=== PATIENT | male | born 1985 | race Caucasian/White ===

== ENCOUNTER 2017-06-26 07:58 | Emergency (ER) | payer OTHER ==
[2017-06-26 08:03] VITALS: TEMP 98.4
[2017-06-26] MEDS ORDERED: NS 1,000 ML IV ONE ×2 (08:48)
--- NOTE | 2017-06-26 08:48 | EDPHY ---
H & P Time Seen by Provider: 06/26/17 08:33 HPI/ROS: Chief complaint. Abdominal pain HPI. 31-year-old male presents to emergency department with right-sided abdominal pain for 1 week. It worsens and then not as bad. When it is bad he has vomiting. He notes better with hot shower. Pain is right mid abdomen and sharp. Minimal right back pain. It is not worse with movement and in fact can' t really find a comfortable position. He has noted his urine is dark but otherwise no urinary symptoms. Penis and testicles are okay. No fever. Some diarrhea earlier in the week. No similar symptoms previously. He has been increasing exercise and work out and drinking sodas and not much water. ROS Constitutional. no fever/chills, no weakness Eyes. no problems with vision ENT. no sore throat, no nasal drainage Cardiovascular. no chest pain Respiratory. no shortness of breath, no cough Abdominal. Right mid abdominal pain with nausea vomiting . No problems urinating but dark urine MS. no calf pain/swelling, no neck/back pain, no joint pain Skin. no rash Lymph. no swollen glands Neuro. no headache, no dizziness, no difficulty walking or with speech Past Medical/Surgical History: Healthy Social History: Single, nonsmoker, no alcohol Smoking Status: Never smoked Physical Exam: General Appearance: Alert well-developed male moderate distress vital signs are stable Eyes: Pupils equal and round no pallor or injection. ENT, Mouth: Mucous membranes are moist. Respiratory: There are no retractions, lungs are clear to auscultation. Cardiovascular: Regular rate and rhythm. Gastrointestinal: Abdomen is soft and nontender, no masses, bowel sounds normal. Patient shows me discomfort in the right mid abdomen but it is not tender to deep palpation Neurological: Awake and alert, sensory and motor exams grossly normal. Skin: Warm and dry, no rashes. Musculoskeletal: Neck is supple nontender. Extremities symmetrical, full range of motion. Psychiatric: Patient is oriented X 3, there is no agitation. Constitutional: Initial Vital Signs Temperature (C) 36.9 C 06/26/17 08:01 Heart Rate 83 06/26/17 08:01 Respiratory Rate 17 06/26/17 08:01 Blood Pressure 142/99 H 06/26/17 08:01 O2 Sat (%) 94 06/26/17 08:01 O2 Delivery Mode Room Air Allergies/Adverse Reactions: No Known Allergies Allergy (Unverified 06/26/17 08:01) Home Medications: Medication Instructions Recorded Ondansetron Odt [Zofran Odt] 4 mg PO Q4PRN PRN #4 tab 06/26/17 oxyCODONE/APAP 5/325 [Percocet 1 tab PO Q4-6PRN PRN #7 tab 06/26/17 5/325] Medical Decision Making - Diagnostics Imaging Results: Imaging Impressions Abdomen/Pelvis CT 06/26/17 08:48 Impression: Normal CT abdomen and pelvis without IV contrast. No evidence for nephrolithiasis or hydronephrosis. No CT findings for appendicitis. Information relayed to Dr. Miguel Cisse on 26 June 2017 at 0940 hours. Attention: This CT examination is specifically designed to evaluate patients who are clinically suspected of having acute obstructive uropathy. This examination does not use radiographic contrast, and as such, provides only a limited evaluation of the abdomen, pelvis and retroperitoneum. If there is further clinical suspicion for pathological conditions other than obstructive uropathy, a complete CT evaluation of the abdomen and pelvis utilizing intravenous, oral, and rectal contrast should be considered. CT abdomen without IV contrast shows a normal appendix and no evidence for kidney stone Procedures: Urine dip shows trace blood ED Course/Re-evaluation: IV normal saline Re-evaluation at 10:30 a.m. patient continues to have pain and it is somewhat worse again. Treated with morphine and Zofran. Patient continued to have discomfort. I consulted and asked Dr. Nino, surgery to see the patient. He has evaluated the patient does not feel he has appendicitis. The patient and Dr. Nino and I are comfortable with treating the patient as an outpatient with re-evaluation in 1 day for continuing symptoms Differential Diagnosis: Certainly appears the patient had a kidney stone. He has right flank pain that waxes and wanes any can't get comfortable and he has blood in his urine. However CT shows no evidence of kidney stone. I considered appendicitis but we have good view of the appendix. This could be gastroenteritis. It is possible this represents cyclic vomiting syndrome with frequent ingestion of cannabis. - Data Points Laboratory Results: Laboratory Results 06/26/17 08:22 06/26/17 08:22 06/26/17 06/26/17 06/26/17 08:22 08:22 08:15 WBC 15.51 10^3/uL H 10^3/uL (3.80-9.50) RBC 4.93 10^6/uL 10^6/uL (4.40-6.38) Hgb 15.6 g/dL g/dL (13.7-17.5) Hct 43.6 % % (40.0-51.0) MCV 88.4 fL fL (81.5-99.8) MCH 31.6 pg pg (27.9-34.1) MCHC 35.8 g/dL g/dL (32.4-36.7) RDW 12.4 % % (11.5-15.2) Plt Count 339 10^3/uL 10^3/uL (150-400) MPV 9.5 fL fL (8.7-11.7) Neut % (Auto) 86.4 % H % (39.3-74.2) Lymph % (Auto) 6.5 % L % (15.0-45.0) [place] % (Auto) 6.2 % % (4.5-13.0) Eos % (Auto) 0.1 % L % (0.6-7.6) Baso % (Auto) 0.3 % % (0.3-1.7) Nucleat RBC Rel Count 0.0 % % (0.0-0.2) Absolute Neuts (auto) 13.40 10^3/uL H 10^3/uL (1.70-6.50) Absolute Lymphs (auto) 1.01 10^3/uL 10^3/uL (1.00-3.00) Absolute Monos (auto) 0.96 10^3/uL H 10^3/uL (0.30-0.80) Absolute Eos (auto) 0.02 10^3/uL L 10^3/uL (0.03-0.40) Absolute Basos (auto) 0.05 10^3/uL 10^3/uL (0.02-0.10) Absolute Nucleated RBC 0.00 10^3/uL 10^3/uL (0-0.01) Immature Gran % 0.5 % % (0.0-1.1) Immature Gran # 0.07 10^3/uL 10^3/uL (0.00-0.10) Sodium 146 mEq/L H mEq/L (135-145) Potassium 3.8 mEq/L mEq/L (3.5-5.2) Chloride 106 mEq/L mEq/L (97-110) Carbon Dioxide 23 mEq/l mEq/l (22-31) Anion Gap 17 mEq/L H mEq/L (8-16) BUN 13 mg/dL mg/dL (7-23) Creatinine 0.8 mg/dL mg/dL (0.7-1.3) Estimated GFR > 60 Glucose 109 mg/dL H mg/dL (70-100) Calcium 10.6 mg/dL H mg/dL (8.5-10.4) Urine Color YELLOW Urine Appearance CLEAR Urine pH 5.0 (5.0-7.5) Ur Specific [place] 1.030 (1.002-1.030) Urine Protein 1+ H (NEGATIVE) Urine Ketones 2+ H (NEGATIVE) Urine Blood 1+ H (NEGATIVE) Urine Nitrate NEGATIVE (NEGATIVE) Urine Bilirubin NEGATIVE (NEGATIVE) Urine Urobilinogen 4.0 EU H EU (0.2-1.0) Ur Leukocyte Esterase NEGATIVE (NEGATIVE) Urine RBC 15-25 /hpf H /hpf (0-3) Urine WBC 1-3 /hpf /hpf (0-3) Ur Epithelial Cells NONE SEEN /lpf /lpf (NONE-1+) Urine Mucus 1+ /lpf /lpf (NONE-1+) Urine Glucose NEGATIVE (NEGATIVE) Medications Given: Discontinued Medications Sodium Chloride (Ns) 1,000 mls @ 0 mls/hr IV EDNOW ONE; Wide Open PRN Reason: Protocol Stop: 06/26/17 08:49 Last Admin: 06/26/17 08:54 Dose: 1,000 mls Sodium Chloride (Ns) 1,000 mls @ 0 mls/hr IV EDNOW ONE; Wide Open PRN Reason: Protocol Stop: 06/26/17 08:49 Last Admin: 06/26/17 08:55 Dose: 1,000 mls Morphine Sulfate (Morphine) 6 mg IVP EDNOW ONE Stop: 06/26/17 10:29 Last Admin: 06/26/17 10:33 Dose: 6 mg Ondansetron HCl (Zofran) 4 mg IVP EDNOW ONE Stop: 06/26/17 10:29 Last Admin: 06/26/17 10:31 Dose: 4 mg Departure - Departure Disposition: Home, Routine, Self-Care Clinical Impression: Abdominal pain Qualifiers: Abdominal location: right lower quadrant Qualified Code(s): R10.31 - Right lower quadrant pain Condition: Good Instructions: Abdominal Pain (ED) Additional Instructions: Easy activity today. Drink plenty of fluids and stay hydrated. Percocet if needed for discomfort. Ibuprofen 600 mg every 6 hr for discomfort. Zofran if needed for nausea. Return for worsening symptoms. Recheck in 1 day if not improved Referrals: NONE *PRIMARY CARE P,. [Primary Care Provider] - As per Instructions Prescriptions: Ondansetron Odt [Zofran Odt] 4 mg PO Q4PRN PRN #4 tab PRN Reason: Nausea/Vomiting, Use 1st oxyCODONE/APAP 5/325 [Percocet 5/325] 1 tab PO Q4-6PRN PRN #7 tab PRN Reason: Pain, Moderate
[2017-06-26 08:54] LABS: PLATELET COUNT 339 10^3/uL (150-400)
[2017-06-26 10:18] VITALS: RESP 16
[2017-06-26] MEDS ORDERED: ONDANSETRON 4 MG/2 ML VIAL IVP ONE (10:28)
[2017-06-26 12:52] VITALS: BP 138/85; PULSE 81; O2SAT 98
--- NOTE | 2017-06-26 12:59 | GCON ---
[f rep st] CONSULTATION DATE OF CONSULTATION: 06/26/2017 CHIEF COMPLAINT: Abdominal pain with nausea and vomiting. HISTORY OF PRESENT ILLNESS: This is an otherwise healthy 31-year-old male, who presents to the emerg ency department with colicky right upper quadrant pain for the last [id number] to 2 weeks. The patient states that he initially noticed the pain while lying down approximately 2 weeks ago, and sta eugene that it is first noted as what he called back pain, and that usually resolved within an hour or s o. He states that over the last 2 weeks, he has had multiple episodes, the last of which was last ni ght and persisted, which prompted his presentation here. In addition to the pain, he endorses nausea with vomiting, and he did vomit once while here. Prior to coming to the emergency department, he st ates that he did have a little bit of problems urinating and states that he did notice something floa ting in the toilet bowl but was unclear what it was. In addition to the above symptoms, he denies snow ving any fevers or chills. He did state that his pain was 9/10 on presentation; he describes it as r ight upper quadrant in nature with radiation to the back and down his leg. He denied having any issu es while urinating earlier today. Prior to 2 weeks ago, he has never had pain like this before. PAST MEDICAL HISTORY: None. PAST SURGICAL HISTORY: None. CURRENT MEDICATIONS: None. FAMILY HISTORY: Noncontributory. SOCIAL HISTORY: Single. Smokes marijuana daily. Does not use alcohol. Denies illicit drug use. 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 REVIEW OF SYSTEMS: A full 10-point review was performed and, unless explicitly stated above, is othe rwise negative. PHYSICAL EXAMINATION: VITAL SIGNS: Temperature 36.9, blood pressure 130/92, heart rate is 58, and h e is 95% on room air. CONSTITUTIONAL: He is in no apparent distress. He appears comfortable. HEEN T: Eyes: His pupils are equal, round, and reactive to light and accommodation. He has anicteric sc lerae. Ears, nose, mouth and throat: He has moist mucous membranes. His hearing is normal. His ea rs appear normal. CARDIOVASCULAR: He has a regular rate and rhythm without murmurs. RESPIRATORY: No respiratory distress. No rales or rhonchi. He is otherwise clear to auscultation. GI: He has n ormoactive bowel sounds. He is soft, nondistended, nontender. No rebound tenderness. Negative Murp hy sign. SKIN: Warm, normal color. Multiple tattoos on his upper extremities. No rashes or abrasi ons. MUSCULOSKELETAL: Full strength, no weakness or tenderness. NEUROLOGIC: Alert and oriented x3 . Cranial nerves 2-12 intact. No weakness, no numbness. PSYCH: He is interacting appropriately. He is not anxious. LYMPH/HEME/IMMUNOLOGIC: No cervical, groin or supraclavicular lymphadenopathy ap preciated. MEDICAL DECISION MAKING: Labs: Leukocytosis to 15,000, H and H stable at 15 and 44. Chemistry, wit h the exception of an elevated glucose at 109 and an elevated calcium at 10.6, is unremarkable. His urine is significant for 15-25 red cells with 1+ blood. Imaging performed included a CT scan of the abdomen and pelvis without IV contrast which shows no nep hro- or urolithiasis. It also visualizes the appendix well without any appendiceal wall thickening, stranding or any secondary signs of appendicitis. These images were personally reviewed by myself. ASSESSMENT/PLAN: A 31-year-old male with 2-week history of abdominal pain. Question renal colic abeba alesha appendicitis. After evaluating the patient, he does not have a classical history for appendiciti s as he has had this pain on and off for 2 weeks. I discussed with him the usual findings and usual history of appendicitis, and that it usually starts fairly suddenly and progresses. I also discussed his CT scan findings with him and that he has a normal appearing appendix without any secondary sign s of appendicitis. Given these findings, as well as reassuring physical examination, I told the mari ent that he more than likely does not have appendicitis, although it could progress to be so. I gave him worrisome characteristics to re-present to the emergency department for further for evaluation, but anticipate that he will continue to do well. We did discuss hydration as he drinks a significant amount of soda on a daily basis and he understands that he will cut back on this and increase his wa ter intake. I told him that if he should have recurrent pain in the right lower quadrant, fevers, ch ills, that he should re-present for further workup. He verbally understood this. The plan will be to p.o. challenge and likely send the patient home. /[id number]/MODL
== END 2017-06-26 12:50 | disposition home or self-care (01) ==
DX: R10.31 Right lower quadrant pain (principal); E86.9 Volume depletion, unspecified
CPT/HCPCS: 96374; J2405

== ENCOUNTER 2017-06-27 07:16 | Inpatient (IN) | payer OTHER ==
--- NOTE | 2017-06-27 07:26 | EDPHY ---
H & P Stated Complaint: RLQ pain, nausea not improved -here 06/26 for same Time Seen by Provider: 06/27/17 07:25 - Personal History Current Tetanus/Diphtheria Vaccine: Unsure Current Tetanus Diphtheria and Acellular Pertussis (TDAP): Unsure - Medical/Surgical History Hx Asthma: No Hx Chronic Respiratory Disease: No Hx Diabetes: No Hx Cardiac Disease: No Hx Renal Disease: No Hx Cirrhosis: No Hx Alcoholism: No Hx HIV/AIDS: No Hx Splenectomy or Spleen Trauma: No Other PMH: denies - Social History Smoking Status: Never smoked Constitutional: Initial Vital Signs Temperature (C) 36.9 C 06/27/17 07:20 Heart Rate 78 06/27/17 07:20 Respiratory Rate 16 06/27/17 07:20 Blood Pressure 151/94 H 06/27/17 07:20 O2 Sat (%) 92 06/27/17 07:20 O2 Delivery Mode Nasal Cannula O2 (L/minute) 2 Allergies/Adverse Reactions: No Known Allergies Allergy (Verified 06/27/17 07:26) Home Medications: Medication Instructions Recorded Ondansetron Odt [Zofran Odt] 4 mg PO Q4PRN PRN #4 tab 06/26/17 oxyCODONE/APAP 5/325 [Percocet 1 tab PO Q4-6PRN PRN #7 tab 06/26/17 5/325] Acetaminophen [Tylenol 325mg (*)] 325 mg PO Q8HRS PRN 06/27/17 Ibuprofen [Motrin (*)] 200 mg PO DAILY PRN 06/27/17 Medical Decision Making - Diagnostics Imaging Results: Imaging Impressions Abdomen Ultrasound 06/27/17 07:32 Impression: Cholelithiasis with no definite sonographic findings to support a clinical diagnosis of acute cholecystitis. Results called and discussed with Db Ramirez MD on 06/27/2017 at 8:40 Imaging: Discussed imaging studies w/ bending roll hand Radiologist ED Course/Re-evaluation: CHIEF COMPLAINT: Abdominal pain HISTORY OF PRESENT ILLNESS: The patient is a 31 y/o male who returns for the 2nd time in 24 hours for worsening right-sided abdominal pain. He reports intermittent abdominal pain for 3 weeks. He initially noticed lower abdomen/ groin pain with mild radiation to his back, but this has since localized more to his RLQ and RUQ. In the last few days he developed nausea, vomiting, and orange-colored diarrhea. He denies urinary symptoms, fever, cough, testicle or penis pain, recent illness or trauma. During evaluation here yesterday for these symptoms by ED physician and surgeon, his abdomen/pelvis CT was normal and showed no signs of appendicitis. Today his pain feels more severe so he returned for reevaluation. He is unable to find a comfortable position and denies alleviating or aggravating factors. He does smoke marijuana daily. REVIEW OF SYSTEMS: A 10 point review of systems was performed and is negative with the exception of the elements mentioned in the history of present illness. PHYSICAL EXAM: HR, BP, O2 Sat, RR. Temp noted General Appearance: Alert, well hydrated, appropriate, and non-toxic appearing. Head: Atraumatic without scalp tenderness or obvious injury Eyes: Pupils equal, round, reactive to light and accommodation, EOMI, no trauma , no injection. Nose: Atraumatic, no rhinorrhea, clear. Throat: Mucus membranes moist. Neck: Supple Respiratory: No retractions, no distress, no wheezes, and no accessory muscle use. Lungs are clear to auscultation bilaterally. Cardiovascular: Regular rate and rhythm, no murmurs, rubs, or gallops. Good capillary refill all extremities. Gastrointestinal: Abdomen is soft, positive Card's sign, non-distended, no masses, no rebound, no guarding, no peritoneal signs. Musculoskeletal: Normal active ROM of all extremities, atraumatic. Neurological: Alert, appropriate, and interactive. The patient has non-focal cranial nerves, motor, sensory, and cerebellar exam. Skin: No rashes, good turgor, no nodules on palpation. Past medical history: Denies Past surgical history: Denies Family history: Noncontributory Social history: Single. Smokes marijuana daily. No alcohol use. Works for marijuana dispensary. Prior medical records reviewed including ED visit, CT imaging, and surgeon note from 06/26/16 for the same symptoms. DIAGNOSTICS/PROCEDURES/CRITICAL CARE TIME: RUQ US: Cholelithiasis MRCP: 3mm stone in common bile duct. DIFFERENTIAL DIAGNOSIS: The differential diagnosis for the patient's abdominal pain included but was not limited to appendicitis, cholecystitis, hernias, testicular torsion, gastritis, and urinary tract infection. MEDICAL DECISION MAKING: This is a 31 y/o male who returns with a 3-week history of worsening RUQ pain. Abdominal CT yesterday was normal. He has a positive Card's sign on exam today , but otherwise is well-appearing. Afebrile here. Plan for IV, labs, and abdominal US. 1mg IV Dilaudid, 4mg IV Zofran, 30mg IV Toradol, and 2L IV NS administered. Abdominal US shows multiple gallstones. His LFTs, bilirubin, and alkaline phosphatase are elevated. WBC elevated. UA pending. Suspect recent passage of stone through common duct due to these elevated enzymes. Patient will require admission and surgery consult for cholelithiasis and cholecystitis. Consulted with Dr. Velez, surgeon. He will assess patient in the ED and recommends GI consult for ERCP. Spoke with hospitalist service. Dr. Moses accepts admission. Reassessed patient and discussed results. He is more comfortable after medication. He agrees with plan for admission. 0940: Consulted with Dr. Robles, GI. He recommends MRCP and will consult during admission. - Data Points Laboratory Results: Laboratory Results 06/27/17 07:36 06/27/17 07:36 06/27/17 06/27/17 06/27/17 08:50 07:36 07:36 WBC 10.04 10^3/uL H 10^3/uL (3.80-9.50) RBC 4.73 10^6/uL 10^6/uL (4.40-6.38) Hgb 14.9 g/dL g/dL (13.7-17.5) Hct 42.4 % % (40.0-51.0) MCV 89.6 fL fL (81.5-99.8) MCH 31.5 pg pg (27.9-34.1) MCHC 35.1 g/dL g/dL (32.4-36.7) RDW 12.6 % % (11.5-15.2) Plt Count 332 10^3/uL 10^3/uL (150-400) MPV 9.6 fL fL (8.7-11.7) Neut % (Auto) 82.9 % H % (39.3-74.2) Lymph % (Auto) 9.9 % L % (15.0-45.0) [place] % (Auto) 6.5 % % (4.5-13.0) Eos % (Auto) 0.1 % L % (0.6-7.6) Baso % (Auto) 0.2 % L % (0.3-1.7) Nucleat RBC Rel Count 0.0 % % (0.0-0.2) Absolute Neuts (auto) 8.33 10^3/uL H 10^3/uL (1.70-6.50) Absolute Lymphs (auto) 0.99 10^3/uL L 10^3/uL (1.00-3.00) Absolute Monos (auto) 0.65 10^3/uL 10^3/uL (0.30-0.80) Absolute Eos (auto) 0.01 10^3/uL L 10^3/uL (0.03-0.40) Absolute Basos (auto) 0.02 10^3/uL 10^3/uL (0.02-0.10) Absolute Nucleated RBC 0.00 10^3/uL 10^3/uL (0-0.01) Immature Gran % 0.4 % % (0.0-1.1) Immature Gran # 0.04 10^3/uL 10^3/uL (0.00-0.10) PT INR Sodium 144 mEq/L mEq/L (135-145) Potassium 3.9 mEq/L mEq/L (3.5-5.2) Chloride 101 mEq/L mEq/L (97-110) Carbon Dioxide 26 mEq/l mEq/l (22-31) Anion Gap 17 mEq/L H mEq/L (8-16) BUN 12 mg/dL mg/dL (7-23) Creatinine 0.9 mg/dL mg/dL (0.7-1.3) Estimated GFR > 60 Glucose 113 mg/dL H mg/dL (70-100) Calcium 10.1 mg/dL mg/dL (8.5-10.4) Total Bilirubin 6.9 mg/dL H mg/dL (0.1-1.4) Conjugated Bilirubin 5.0 mg/dL H mg/dL (0.0-0.5) Unconjugated Bilirubin 1.9 mg/dL H mg/dL (0.0-1.1) AST 220 IU/L H IU/L (17-59) ALT 420 IU/L H IU/L (21-72) Alkaline Phosphatase 164 IU/L H IU/L (38-126) Total Protein 8.1 g/dL g/dL (6.3-8.2) Albumin 4.5 g/dL g/dL (3.5-5.0) Lipase 87 IU/L IU/L (23-300) Urine Color MISSY Urine Appearance CLEAR Urine pH 5.0 (5.0-7.5) Ur Specific [place] 1.029 (1.002-1.030) Urine Protein 1+ H (NEGATIVE) Urine Ketones 1+ H (NEGATIVE) Urine Blood NEGATIVE (NEGATIVE) Urine Nitrate NEGATIVE (NEGATIVE) Urine Bilirubin POSITIVE H (NEGATIVE) Urine Urobilinogen 4.0 EU H EU (0.2-1.0) Ur Leukocyte Esterase NEGATIVE (NEGATIVE) Urine RBC 1-3 /hpf /hpf (0-3) Urine WBC 5-10 /hpf H /hpf (0-3) Ur Epithelial Cells NONE SEEN /lpf /lpf (NONE-1+) Urine Mucus 2+ /lpf H /lpf (NONE-1+) Urine Glucose NEGATIVE (NEGATIVE) 06/27/17 07:30 WBC RBC Hgb Hct MCV MCH MCHC RDW Plt Count MPV Neut % (Auto) Lymph % (Auto) [place] % (Auto) Eos % (Auto) Baso % (Auto) Nucleat RBC Rel Count Absolute Neuts (auto) Absolute Lymphs (auto) Absolute Monos (auto) Absolute Eos (auto) Absolute Basos (auto) Absolute Nucleated RBC Immature Gran % Immature Gran # PT 14.1 SEC SEC (12.0-15.0) INR 1.07 (0.83-1.16) Sodium Potassium Chloride Carbon Dioxide Anion Gap BUN Creatinine Estimated GFR Glucose Calcium Total Bilirubin Conjugated Bilirubin Unconjugated Bilirubin AST ALT Alkaline Phosphatase Total Protein Albumin Lipase Urine Color Urine Appearance Urine pH Ur Specific [place] Urine Protein Urine Ketones Urine Blood Urine Nitrate Urine Bilirubin Urine Urobilinogen Ur Leukocyte Esterase Urine RBC Urine WBC Ur Epithelial Cells Urine Mucus Urine Glucose Medications Given: Ondansetron HCl (Zofran) 4 mg IVP Q4HRS PRN PRN Reason: Nausea/Vomiting, Can't Take PO Stop: 12/24/17 10:36 Last Admin: 06/27/17 11:26 Dose: 4 mg Discontinued Medications Ertapenem (Invanz) 1 gm IVP EDNOW ONE PRN Reason: Protocol Stop: 06/27/17 10:29 Last Admin: 06/27/17 10:42 Dose: 1 gm Hydromorphone HCl (Dilaudid) 1 mg IVP EDNOW ONE Stop: 06/27/17 07:32 Last Admin: 06/27/17 07:52 Dose: 1 mg Sodium Chloride (Ns) 1,000 mls @ 0 mls/hr IV EDNOW ONE; Wide Open PRN Reason: Protocol Stop: 06/27/17 07:32 Last Admin: 06/27/17 07:50 Dose: 1,000 mls Sodium Chloride (Ns) 1,000 mls @ 0 mls/hr IV EDNOW ONE; Wide Open PRN Reason: Protocol Stop: 06/27/17 07:32 Last Admin: 06/27/17 07:51 Dose: 1,000 mls Ketorolac Tromethamine (Toradol) 30 mg IVP EDNOW ONE Stop: 06/27/17 07:32 Last Admin: 06/27/17 07:52 Dose: 30 mg Ondansetron HCl (Zofran) 4 mg IVP EDNOW ONE Stop: 06/27/17 07:32 Last Admin: 06/27/17 07:52 Dose: 4 mg Departure - Departure Disposition: [facility] Acute Clinical Impression: Cholecystitis, Choledocholithiasis Cholelithiases Qualifiers: Cholelithiasis location: gallbladder Cholecystitis presence: with cholecystitis Cholecystitis acuity: acute Biliary obstruction: without biliary obstruction Qualified Code(s): K80.00 - Calculus of gallbladder with acute cholecystitis without obstruction Condition: Fair Report Scribed for: Db Ramirez Report Scribed by: Gail Vides Date of Report: 06/27/17 Time of Report: 08:11
[2017-06-27] MEDS ORDERED: NS 1,000 ML IV ONE ×2 (07:31)
[2017-06-27] MEDS ORDERED: HYDROmorphONE/DILAUDID 1 MG/ML INJ IVP ONE (07:31)
[2017-06-27] MEDS ORDERED: ONDANSETRON 4 MG/2 ML VIAL IVP ONE (07:31)
[2017-06-27] MEDS ORDERED: KETOROLAC 30 MG/1 ML SDV IVP ONE (07:31)
[2017-06-27 08:18] LABS: PLATELET COUNT 332 10^3/uL (150-400)
[2017-06-27] MEDS ORDERED: ERTAPENEM 1 GM VIAL IVP ONE (10:28)
[2017-06-27] MEDS ORDERED: PROMETHAZINE HCL 25 MG/ML INJ IVP PRN (10:37)
[2017-06-27] MEDS ORDERED: ONDANSETRON 4 MG/2 ML VIAL IVP PRN ×2 (10:37→17:18)
[2017-06-27] MEDS ORDERED: ACETAMINOPHEN 325 MG TAB PO PRN (10:37)
[2017-06-27] MEDS ORDERED: ONDANSETRON DISINTEGRATING 4 MG TAB PO PRN (10:37)
[2017-06-27 11:06] LABS: INR 1.07 (0.83-1.16); PROTIME(PATIENT) 14.1 SEC (12.0-15.0)
--- NOTE | 2017-06-27 11:08 | GHP ---
[f rep st] HISTORY AND PHYSICAL DATE OF ADMISSION: 06/27/2017 HISTORY OF PRESENT ILLNESS: Mr. Kapoor is a 31-year-old gentleman with minimal past medical histo ry, who has had 2 ER visits in the last two days for abdominal pain. He was seen yesterday where he had an abdominal pelvis CT done without contrast showing no evidence of kidney stone. It was a noncon trast CT. He was also noted to have blood in urine which in retrospect was probably biliary. At [facility] t time, the gallbladder and pancreas were described as unremarkable. Returns today with worsening abdominal pain. He has had some subjective fevers and chills. He has h ad no cough, no shortness of breath. He does give a history of biliary colic in the past. REVIEW OF SYSTEMS: Complete 10-point review of systems conducted and negative except as noted in the HPI. PAST MEDICAL HISTORY: None. ALLERGIES: None. HOME MEDICATIONS: None. 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 Does not drink alcohol. Has smoked in the past briefly but is not a smoker at this point in [facility]. FAMILY HISTORY: Reviewed and unremarkable. PHYSICAL EXAMINATION: VITAL SIGNS: Temperature 36.7, blood pressure 151/94, pulse 60, breathing 14 times a minute, 95% on room air. GENERAL: No acute distress. HEENT: Sclerae are icteric. Oropharyn x clear. Mucous membranes are moist. NECK: Supple without lymphadenopathy or JVD. LUNGS: Clear t o auscultation bilaterally. HEART: S1, S2. ABDOMEN: Soft, nontender, nondistended. There is some right upper quadrant tenderness sunshine Card sign. LOWER EXTREMITIES: Without edema. C sr nontender. SKIN: Without rash. NEUROLOGIC: Exam is nonfocal. LABORATORY STUDIES: His UA shows 5 to 10 white cells, otherwise, unremarkable. His urine is positiv e for bilirubin. Notably, it was negative yesterday. Sodium 144, potassium 3.9, chloride 101, bicarbo brandi 26, BUN 12, creatinine 0.9, glucose 113. Bilirubin is 6.9, mostly conjugated. AST is 228, ALT is 420, alkaline phosphatase 164. Lipase is normal. White count is 10. Hematocrit is 42, platelets are 332,000. Imaging. STUDIES: Abdominal ultrasound shows cholelithiasis with a borderline dilated common bile duct of 7.6 mm with no intrahepatic ductal dilation. The CT yesterday has a normal gallbladder and I reviewed i t and interpreted those images myself. I discussed the case with Dr. Ramirez. ASSESSMENT AND PLAN: 31-year-old gentleman with biliary obstruction and probable choledocholithiasis . 1. Biliary obstruction. The patient has elevated LFTs and lipase and right upper quadrant pain, and dark urine with evidence of bilirubin and this is suggestive of biliary obstruction. An MRCP has be en ordered. I agree with this. He has been started on ertapenem. I will transition him to Unasyn for tomorrow and GI consultation has been obtained. 2. Hyperglycemia. This is mild and a nonfasting sample. I do acknowledge this patient's obesity. We will follow. 3. Hypertension. The patient is at risk given his obesity for hypertension. We recommend outpatient followup. 4. Elevated liver function tests, consistent with biliary obstruction. As mentioned above. DISPOSITION: 1. Inpatient status. 2. Prophylaxis, SCDs. /[id number]/MODL
[2017-06-27] MEDS ORDERED: GLUCAGON HCL 1 MG VIAL ONE (15:12)
[2017-06-27] MEDS ORDERED: IOTHALAMATE MEG (CONRAY) 50 ML VIAL IV ONE (15:14)
[2017-06-27] MEDS ORDERED: LR 1,000 ML IV ONE (15:22)
--- NOTE | 2017-06-27 16:13 | PDANEPAE ---
ANE History of Present Illness ERCP ANE Past Medical History - Cardiovascular History Hx Hypertension: No Hx Arrhythmias: No Hx Chest Pain: No Hx Coronary Artery / Peripheral Vascular Disease: No Hx CHF / Valvular Disease: No Hx Palpitations: No - Pulmonary History Hx COPD: No Hx Asthma/Reactive Airway Disease: No Hx Recent Upper Respiratory Infection: No Hx Oxygen in Use at Home: No Hx Sleep Apnea: No Sleep Apnea Screening Result - Last Documented: Positive - Endocrine History Hx Diabetes: No - Chronic Pain History Chronic Pain: No ANE Review of Systems Review of Systems: - Exercise capacity METS (RN): 4 METS ANE Patient History - Allergies Allergies/Adverse Reactions: No Known Allergies Allergy (Verified 06/27/17 07:26) - Home Medications Home Medications: Acetaminophen [Tylenol 325mg (*)] 325 mg PO Q8HRS PRN 06/27/17 [Last Taken Unknown] Ibuprofen [Motrin (*)] 200 mg PO DAILY PRN 06/27/17 [Last Taken Unknown] - NPO status NPO Since - Liquids (Date): 06/27/17 NPO Since - Liquids (Time): 06:00 NPO Since - Solids (Date): 06/26/17 NPO Since - Solids (Time): 22:00 - Smoking Hx Marijuana use: Yes - Family Anes Hx Family Anes Hx: none ANE Labs/Vital Signs - Labs Result Diagrams: 06/27/17 07:36 06/27/17 07:36 - Vital Signs Blood Pressure: 159/99 Heart Rate: 63 Respiratory Rate: 15 O2 Sat (%): 92 Height: 177.8 cm Weight: 124.8 kg ANE Physical Exam - Airway Neck exam: FROM Mallampati Score: Class 1 Mouth exam: normal dental/mouth exam, poor dentition - Pulmonary Pulmonary: no respiratory distress - Cardiovascular Cardiovascular: regular rate and rhythym, no murmur, rub, or gallop - ASA Status ASA Status: II ANE Anesthesia Plan Anesthesia Plan: general endotracheal anesthesia
[2017-06-27] MEDS ORDERED: MIDAZOLAM 2 MG/2 ML VIAL ONE (16:18)
[2017-06-27] MEDS ORDERED: PROPOFOL/EMULSION 500 MG/50 ML BOTTLE IV ONE (16:18)
[2017-06-27] MEDS ORDERED: fentaNYL 100 MCG/2 ML INJ ONE ×2 (16:18)
[2017-06-27] MEDS ORDERED: INDOMETHACIN 50 MG SUPP PR ONE ×3 (16:41→16:50)
[2017-06-27] MEDS ORDERED: PROPOFOL 200 MG/20 ML VIAL ONE (16:41)
[2017-06-27] MEDS ORDERED: GLYCOPYRROLATE 0.2 MG/1 ML VIAL ONE (16:47)
[2017-06-27] MEDS ORDERED: SUCCINYLCHOLINE CHLORIDE 200 MG/10 ML SYR IVP ONE (16:47)
[2017-06-27] MEDS ORDERED: ONDANSETRON 4 MG/2 ML VIAL ONE (16:48)
[2017-06-27] MEDS ORDERED: ROCURONIUM 50 MG/5 ML VIAL ONE (16:48)
[2017-06-27] MEDS ORDERED: DEXAMETHASONE 4 MG/ML VIAL ONE (16:48)
[2017-06-27] MEDS ORDERED: SUGAMMADEX SODIUM 200 MG/2 ML VIAL IVP ONE (17:02)
--- NOTE | 2017-06-27 17:10 | GIREPORT ---
[facility] Surgical Services - Endoscopy Department Patient Name: Lalito Kapoor Procedure Date: 06/27/2017 3:26 PM Patient Type: Inpatient Attending MD/ ER Physician: Van Robles MD Procedure: ERCP Indications: Bile duct stone(s) Patient Profile: 31 year old male presents for evaluation of choledocholithiasis. Providers: Van Robles MD Medicines: General Anesthesia, Indomethacin 100 mg [place] Complications: No immediate complications. Estimated blood loss: Minimal. Description of Procedure: After obtaining informed consent, the scope was passed under direct vis ion. Throughout the procedure, the patient's blood pressure, pulse, and oxyg en saturations were monitored continuously. The Duodenalscope was introduc ed through the mouth, and advanced to the duodenum and used to inject cont rast into the bile duct. The ERCP was accomplished without difficulty. The patient tolerated the procedure well. Findings: The chief contract officer film was normal. The esophagus was successfully intubated und er direct vision. The scope was advanced to a normal major papilla in the descending duodenum without detailed examination of the pharynx, larynx and associated structures, and upper GI tract. The upper GI tract was gross ly normal. The bile duct was deeply cannulated with the short-nosed tracti on sphincterotome. Contrast was injected. I personally interpreted the kaitlin e duct images. Ductal flow of contrast was adequate. Image quality was suboptimal due to body habitus. Contrast extended to the bifurcation. T he CBD dilated to 9mm. The middle third of the main bile duct contained tw o stones, the largest of which was 10 mm in diameter. A 12 mm biliary sphincterotomy was made with a traction (standard) sphincterotome using pure cut current. The sphincterotomy oozed blood. The biliary tree was swept with a 15 mm balloon starting at the bifurcation. All stones were removed. T here was significant pus following from the duct consistent with cholangitis . Estimated Blood Loss: Estimated blood loss was minimal. Post Op Diagnosis: - Choledocholithiasis was found. Complete removal was accomplished by biliary sphincterotomy and balloon extraction. - A biliary sphincterotomy was performed. - The biliary tree was swept. - CHOLANGITIS. Recommendation: - Return patient to hospital [facility] for ongoing care. - NPO. - Antibiotics x 10 days. - Thank you for allowing me to participate in the care of your patient. Attending Participation: I personally performed the entire procedure. Van Robles MD Van Robles MD 06/27/2017 5:09:47 PM This report has been signed electronicallyVan Robles MD Number of Addenda: 0 Note Initiated On: 06/27/2017 3:26 PM [email or web address]
[2017-06-27] MEDS ORDERED: LABETALOL HCL 5 MG/ML 20 ML MDV ONE (17:17)
[2017-06-27] MEDS ORDERED: LR 500 ML IV PRN (17:18)
[2017-06-27] MEDS ORDERED: fentaNYL 100 MCG/2 ML INJ IVP PRN (17:18)
[2017-06-27] MEDS ORDERED: LABETALOL HCL 5 MG/ML 20 ML MDV IVP PRN (17:18)
[2017-06-27] MEDS ORDERED: NALOXONE HCL 0.4 MG/ML INJ IVP PRN (17:18)
--- NOTE | 2017-06-27 17:20 | POSTANESTH ---
Post Anesthetic Evaluation Cardiovascular Status: Similar to Pre-Op Cond Respiratory Status: Normal, Stable Level of Consciousness/Mental Status: Can Participate in Eval Pain Control: Adequate, Prn Tx Ordered Nausea/Vomiting Control: Adequate, Prn Tx Ordered Complications Possibly Related to Anesthesia: None Noted
--- NOTE | 2017-06-27 18:11 | SOAPPROG ---
SOAP Progress Note Assessment/Plan: Assessment: Plan: 06/28/17 04:31 GI note See dictated consult note and procedure note for details. + cholangitis with pus flowing from CBD. S/p ERCP with CBD clearance. Recommend NPO. Needs antibiotics x 10 days. Objective: Vital Signs Temp Pulse Resp BP Pulse Ox 37.4 C 59 L 16 129/90 H 96 06/27/17 17:40 06/27/17 18:09 06/27/17 18:09 06/27/17 18:09 06/27/17 18:09 06/26/17 06/27/17 06/28/17 05:59 05:59 05:59 Intake Total 2500 Output Total 60 Balance 2440 PT 14.1 SEC (12.0-15.0) 06/27/17 07:30 INR 1.07 (0.83-1.16) 06/27/17 07:30 ICD10 Worksheet Patient Problems: Problems Problem Status Onset Cholelithiases Acute Cholecystitis Acute Choledocholithiasis Acute
--- NOTE | 2017-06-27 18:28 | PDMN ---
Medical Necessity Medical necessity: Pt meets INPT criteria per and [facility] [place] M-555 Gallbladder or Bile Duct Inflammation or Stone (choledocholithiasis found with complete removal of stones accomplished by ERCP, significant pus present consistent with cholangitis; elevated LFTs and lipase; requiring IVABx).
[2017-06-28] MEDS: AMPICILLIN/SULBACTAM 3 GM in NS 100 ML IV SCH ×3 (05:08→17:50)
[2017-06-28] MEDS: NS 1,000 ML IV SCH ×3 (05:08→23:00)
[2017-06-28 05:12] LABS: PLATELET COUNT 271 10^3/uL (150-400)
--- NOTE | 2017-06-28 08:46 | GCON ---
[f rep st] CONSULTATION DATE OF CONSULTATION: 06/27/2017 CONSULTING PHYSICIAN: Jose Moses MD REASON FOR CONSULTATION: Abdominal pain/Abnormal imaging CHIEF COMPLAINT: RUQ abdominal pain. HISTORY OF PRESENT ILLNESS: The patient is a 31-year-old male with no significant past medical problems, who presents to [facility] with complaints of abdominal pain. The patient has been experiencing abdominal pain for the last 4-5 days. He complains of a sharp pain right upper quadrant/ right lower quadrant which sometimes radiates to the back. His pain has become progressively worse and may be exacerbated by oral intake. He denies any alleviating factors. He also complains of nausea, as well as episodes of vomiting. On blood work, he was noted to have an elevated WBC of 10.04. He was also noted to have an alkaline phosphatase of 164, with an elevated AST of 220 and ALT of 420. I am being asked by Dr. Moses to evaluate the patient in regard to abdominal pain. PAST MEDICAL HISTORY: None. PAST SURGICAL HISTORY: None. MEDICATIONS: None. ALLERGIES: None. FAMILY HISTORY: No history of colon cancer. SOCIAL HISTORY: Positive marijuana. Drinks alcohol about once a month. No significant tobacco use. REVIEW OF SYSTEMS: A 14-point comprehensive review of systems was asked. Pertinent positives and negatives per HPI. PHYSICAL EXAM: VITAL SIGNS: Blood pressure 147/99, pulse 68, respirations 18, temp 36.8. GENERAL: Awake, alert, oriented x3. No distress. Obese, HEENT: Anicteric sclerae. Moist mucosa. NECK: No JVD. CARDIOVASCULAR: Regular rate and rhythm. Positive S1, S2. No murmurs or gallops appreciated. LUNGS: Clear to auscultation bilaterally. No wheezes, rales, rhonchi. ABDOMEN: Soft , nontender, nondistended. Positive bowel sounds. No guarding. No rebound. EXTREMITIES: No clubbing, cyanosis, or edema. NEUROLOGIC: 2-12 grossly intact. PSYCH: Normal affect. SKIN: No rash. + tattoos. MUSCULOSKELETAL: No obvious joint effusions. LABORATORY DATA: Blood work 06/27/2017: AST 220, ALT 420, alkaline phosphatase 164. MRC positive 3 mm stone. ASSESSMENT AND PLAN: 1. Abdominal pain right upper quadrant/right lower quadrant radiating to the back. Elevated LFTs. Etiology? Suspect choledocholithiasis. At this time, I recommend to proceed ERCP. The risks, benefits, alternatives of the procedure were discussed in great detail with the patient. The risk of infection, bleeding, perforation, sedation, and pancreatitis were discussed. Due to his morbid obesity, he has increased risk of sedation. Will consult Anesthesiology for support. Thank you very much for this consultation. /[id number]/MODL MTDD
[2017-06-28] MEDS: HYDROmorphONE/DILAUDID 1 MG/ML INJ IVP PRN (09:23)
--- NOTE | 2017-06-28 11:17 | SOAPPROG ---
SOAP Progress Note Assessment/Plan: Assessment: CBD stones with cholangitis on antibiotics doing better post ERCP LFT better Plan: Rec IV antibiotics for now Rec cholecystectomy before discharge once cholangitis better 10 days of antibiotics Will sign off for now 06/28/17 11:14 Subjective: CC abd pain Some pain last night but better today. No melena or n/v Objective: Vital Signs Temp Pulse Resp BP Pulse Ox 37.1 C 64 19 140/87 H 92 06/28/17 08:47 06/28/17 08:47 06/28/17 08:47 06/28/17 08:47 06/28/17 08:47 Laboratory Results 06/28/17 04:59 06/28/17 04:59 06/27/17 06/28/17 06/29/17 05:59 05:59 05:59 Intake Total 2500 Output Total 60 Balance 2440 PT 14.1 SEC (12.0-15.0) 06/27/17 07:30 INR 1.07 (0.83-1.16) 06/27/17 07:30 Physical Exam - Physical Exam General Appearance: alert, no apparent distress Respiratory: lungs clear Cardiac/Chest: regular rate, rhythm Abdomen: normal bowel sounds (mild tenderness no rebound) ICD10 Worksheet Patient Problems: Problems Problem Status Onset Cholecystitis Acute Choledocholithiasis Acute Cholelithiases Acute
--- NOTE | 2017-06-28 13:04 | HOSPPROG ---
Hospitalist Progress Note Assessment/Plan: 31-year-old admitted with abdominal pain, he underwent imaging and ERCP which revealed acute cholangitis secondary to gallstones # common bile duct stones with cholangitis, currently on Unasyn he is doing better post ERCP * Will consult surgery * Continue antibiotics * LFTs improving Subjective: Patient new to me and chart reviewed. Has 2 weeks of a mole comfort and 4 days of severe pain. He underwent ERCP and is feeling better today although still has some mild abdominal tenderness Objective: Vital Signs Temp Pulse Resp BP Pulse Ox 37.0 C 53 L 18 133/74 H 92 06/28/17 12:11 06/28/17 12:11 06/28/17 12:11 06/28/17 12:11 06/28/17 12:11 Laboratory Results 06/28/17 04:59 06/28/17 04:59 06/27/17 06/28/17 06/29/17 05:59 05:59 05:59 Intake Total 2500 Output Total 60 Balance 2440 PT 14.1 SEC (12.0-15.0) 06/27/17 07:30 INR 1.07 (0.83-1.16) 06/27/17 07:30 - Physical Exam Constitutional: obese, uncomfortable Eyes: PERRL, anicteric sclera, EOMI Ears, Nose, Mouth, Throat: moist mucous membranes, hearing normal Cardiovascular: regular rate and rhythym, no murmur, rub, or gallop Respiratory: no respiratory distress, no rales or rhonchi, clear to auscultation Gastrointestinal: tenderness (Mild), distension (Mild) Genitourinary: no bladder fullness Skin: warm Musculoskeletal: full muscle strength Neurologic: AAOx3 Psychiatric: interacting appropriately ICD10 Worksheet Patient Problems: Problems Problem Status Onset Cholelithiases Acute Cholecystitis Acute Choledocholithiasis Acute
[2017-06-29 05:24] LABS: PLATELET COUNT 270 10^3/uL (150-400)
[2017-06-29] MEDS: AMPICILLIN/SULBACTAM 3 GM in NS 100 ML IV SCH ×4 (05:24→17:57)
[2017-06-29] MEDS ORDERED: BUPIVACAINE 0.5% 30 ML SDV ONE (07:18)
[2017-06-29] MEDS ORDERED: MIDAZOLAM 2 MG/2 ML VIAL ONE (07:52)
[2017-06-29] MEDS ORDERED: MIDAZOLAM 2 MG/2 ML VIAL IVP ONE (07:53)
[2017-06-29] MEDS ORDERED: ONDANSETRON 4 MG/2 ML VIAL IVP PRN (07:54)
[2017-06-29] MEDS ORDERED: NALOXONE HCL 0.4 MG/ML INJ IVP PRN ×2 (07:54→09:50)
[2017-06-29] MEDS ORDERED: DEXAMETHASONE 4 MG/ML VIAL IVP PRN (07:54)
[2017-06-29] MEDS ORDERED: ALBUTEROL 3 ML DEYVIAL IH PRN (07:54)
--- NOTE | 2017-06-29 07:54 | PDANEPAE ---
ANE History of Present Illness here for lap kalli ETRESA Past Medical History - Cardiovascular History Hx Hypertension: No Hx Arrhythmias: No Hx Chest Pain: No Hx Coronary Artery / Peripheral Vascular Disease: No Hx CHF / Valvular Disease: No Hx Palpitations: No - Pulmonary History Hx COPD: No Hx Asthma/Reactive Airway Disease: No Hx Recent Upper Respiratory Infection: No Hx Oxygen in Use at Home: No Hx Sleep Apnea: No Sleep Apnea Screening Result - Last Documented: Positive - Endocrine History Hx Diabetes: No - Chronic Pain History Chronic Pain: No ANE Review of Systems Review of systems is: negative Review of Systems: - Exercise capacity Exercise capacity: >=4 METS METS (RN): 4 METS ANE Patient History - Allergies Allergies/Adverse Reactions: No Known Allergies Allergy (Verified 06/27/17 07:26) - Home Medications Home medications: home medication list seen and reviewed Home Medications: Acetaminophen [Tylenol 325mg (*)] 325 mg PO Q8HRS PRN 06/27/17 [Last Taken Unknown] Ibuprofen [Motrin (*)] 200 mg PO DAILY PRN 06/27/17 [Last Taken Unknown] - NPO status NPO Status: no food or drink >8 hours NPO Since - Liquids (Date): 06/28/17 NPO Since - Liquids (Time): 00:00 NPO Since - Solids (Date): 06/28/17 NPO Since - Solids (Time): 21:00 - Anes Hx Anes Hx: no prior problems - Smoking Hx Smoking Status: Never smoked TERESA Labs/Vital Signs - Labs Result Diagrams: 06/29/17 05:12 06/29/17 05:12 - Vital Signs Vital Signs: reviewed preoperatively; see RN documention for details Blood Pressure: 174/102 Heart Rate: 51 Respiratory Rate: 16 O2 Sat (%): 96 Height: 177.8 cm Weight: 124.8 kg ANE Physical Exam - Airway Neck exam: FROM Mallampati Score: Class 1 Mouth exam: onofre - Pulmonary Pulmonary: no respiratory distress - Cardiovascular Cardiovascular: regular rate and rhythym - ASA Status ASA Status: II ANE Anesthesia Plan Anesthesia Plan: general endotracheal anesthesia
[2017-06-29] MEDS ORDERED: PROPOFOL/EMULSION 500 MG/50 ML BOTTLE IV ONE (07:58)
[2017-06-29] MEDS ORDERED: fentaNYL 100 MCG/2 ML INJ ONE ×3 (08:12→09:46)
--- NOTE | 2017-06-29 08:20 | GCON ---
[f rep st] CONSULTATION DATE OF CONSULTATION: 06/29/2017 REFERRING PHYSICIAN: Laura Laboy MD REASON FOR CONSULTATION: Choledocholithiasis with cholangitis. HISTORY OF PRESENT ILLNESS: The patient is a 31-year-old man who had presented to the ER with abdomi nal pain. He was ultimately found to have cholangitis and choledocholithiasis. ERCP was performed, stent placed, and biliary sphincterotomy. His LFTs have been trending down. His white count is now normal. PAST MEDICAL HISTORY: None. PAST SURGICAL HISTORY: None. HOME MEDICATIONS: None. ALLERGIES: None. 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 He does not drink alc ohol. FAMILY HISTORY: Noncontributory. REVIEW OF SYSTEMS: Ten-point review of systems negative. PHYSICAL EXAMINATION: VITAL SIGNS: 36.6, 60, 113/81, 16, 95% room air. GENERAL: Pleasant, obese, BMI 39.5, well-groomed man lying on gurney. HEENT: Normocephalic. No gross hearing deficits. Muco us membranes moist. No scleral icterus. Pupils equal and round. LUNGS: Clear to auscultation bila terally. No increased work of breathing. CARDIAC: Regular rate. No peripheral edema. ABDOMEN: B owel sounds present. Soft. Minimal discomfort in the right upper quadrant. No abdominal incisions noted. MUSCULOSKELETAL: Normal nails. SKIN: Multiple tattoos. PSYCH: Mood and affect normal. RUKHSANA RO: Grossly intact. RESULTS REVIEWED: I personally reviewed the results of his laboratory work and his ERCP. Although h is LFTs are still elevated, today they are trending down nicely post ERCP. IMPRESSION/PLAN: The patient is a 31-year-old with cholangitis and choledocholithiasis. I will take him to the operating room for laparoscopic cholecystectomy. The risks and benefits, including, but not limited to, infection, bleeding, bile leak, need for additional procedures, were discussed. He h ad his questions answered to his satisfaction, signed the informed consent. He is on scheduled [place] n. /[id number]/MODL
[2017-06-29] MEDS ORDERED: KETOROLAC 30 MG/1 ML SDV ONE (09:44)
[2017-06-29] MEDS ORDERED: KETOROLAC 30 MG/1 ML SDV IVP ONE (09:45)
--- NOTE | 2017-06-29 09:45 | POSTOPPROG ---
Post Op Note Date of Operation: 06/29/17 Surgeon: Ina West Anesthesiologist: MICHAEL Anesthesia: GET(General Endotracheal) Pre-op Diagnosis: choledocolithiasis cholangitis Post-op Diagnosis: same Indication: 31 yo with cholangitis and choledocolithiasis Procedure: lap kalli Findings: multiple stones, dilated cystic duct with stones impacted Inf/Abcess present in the surg proc area at time of surgery?: Yes Depth: Deep Incisional (Fascial) Specimen(s): gallbladder
[2017-06-29] MEDS: fentaNYL 100 MCG/2 ML INJ IVP PRN ×3 (09:47→10:24)
[2017-06-29] MEDS ORDERED: HYDROCODONE/APAP 5/325 TAB PO PRN (09:47)
[2017-06-29] MEDS ORDERED: DIAZEPAM 10 MG/2 ML SYR IVP PRN (09:50)
[2017-06-29] MEDS ORDERED: MEPERIDINE 25 MG/ML SYR IVP PRN (09:50)
[2017-06-29] MEDS ORDERED: HYDROmorphONE/DILAUDID 1 MG/ML INJ IVP PRN (09:50)
[2017-06-29] MEDS ORDERED: HYDROmorphONE/DILAUDID 1 MG/ML INJ ONE (09:51)
--- NOTE | 2017-06-29 09:51 | POSTANESTH ---
Post Anesthetic Evaluation Cardiovascular Status: Normal, Stable Respiratory Status: Normal, Stable Level of Consciousness/Mental Status: Can Participate in Eval Pain Control: Inadeq, Add Tx Required Nausea/Vomiting Control: Adequate, Prn Tx Ordered Complications Possibly Related to Anesthesia: None Noted
--- NOTE | 2017-06-29 10:11 | GOP ---
[f rep st] OPERATIVE REPORT DATE OF OPERATION: 06/29/2017 SURGEON: Ina West MD ANESTHESIA: Dr. Ba Miranda/general. PREOPERATIVE DIAGNOSIS: 1. Choledocholithiasis. 2. Cholangitis. POSTOPERATIVE DIAGNOSIS: 1. Choledocholithiasis. 2. Cholangitis. PROCEDURE PERFORMED: Laparoscopic cholecystectomy. FINDINGS: Stones impacted in the cystic duct, which was enlarged. The gallbladder was also intrahep atic. SPECIMENS: Gallbladder. ESTIMATED BLOOD LOSS: 25 mL. INDICATIONS: The patient is a 31-year-old who was admitted for choledocholithiasis and cholangitis. He has had an ERCP with stent and sphincterotomy. Presents for cholecystectomy. DESCRIPTION OF PROCEDURE: The patient was brought into the operating room, placed supine on the tabl e, and general anesthesia was administered. His abdomen was prepped and draped in the usual sterile fashion. I infiltrated all sites with 0.5% Marcaine prior to making incisions. I made an incision at his umbilicus. I elevated it. I inserted the Veress needle. It took several attempts to make the Veress needle pass the hang-drop test. He was then connected to CO2 insufflatio n. The abdomen insufflated to a pressure of 15 mmHg. I placed a 5 mm trocar with a camera at this s ite. The trocar was hubbed. There were no injuries from Veress needle placement. Under direct visi on, I placed a 10 mm subxiphoid trocar and two 5 mm trocars in the right upper quadrant. I lifted th e gallbladder cephalad and laterally to expose the triangle of Calot. There was a lot of fat in this area. I had to perform tedious dissection in order to skeletonize the cystic duct. The cystic duct was enlarged. I also identified the cystic artery, which was singly clipped toward the gallbladder, doubly clipped distally, and transected with scissors. I attempted to clip the cystic duct, but the clip did not go all the way around it. I then transected the cystic duct with scissors and then kristofer myriam an Endoloop. There was some stone spillage, as they were impacted in the cystic duct. I lifted the gallbladder and continued to remove it from the gallbladder fossa. It was intrahepatic. I place d the gallbladder in the EndoCatch bag and retrieved it via the subxiphoid trocar. This had to be en larged slightly to accommodate the multiple stones. I then used a stone catheter to retrieve the add itional stones that were spilled. I performed suction irrigation. Hemostasis was achieved on the liver bed with electrocautery. The c lips and the Endoloop were in satisfactory position. Esther was placed on the liver bed. I used a f ascial closure device to close the fascia at the 10 mm trocar site using a [id number]. The port s removed under direct vision. The abdomen allowed to desufflate. Skin closed with 4-0 Monocryl. D ermabond applied. He was awakened in the operating room, extubated, transferred to PACU in stable co ndition. /[id number]/MODL
[2017-06-29] MEDS: KETOROLAC 15 MG/1 ML SDV IVP SCH ×2 (12:14→17:55)
--- NOTE | 2017-06-29 12:47 | ASMTCMCOM ---
CM Note CM Note Notes: Patient is s/p lap kalli with Dr West today. He is recovering well. He lives independently with his sister and is employed. Mother is local and supportive. I anticipate that patient will discharge home with no needs; if any arise, Case Management will assist. Date Signed: 06/29/2017 12:46 PM Electronically Signed By:Paula Sigala RN
--- NOTE | 2017-06-29 14:00 | HOSPPROG ---
Hospitalist Progress Note Assessment/Plan: 31-year-old admitted with abdominal pain, he underwent imaging and ERCP which revealed acute cholangitis secondary to gallstones. # common bile duct stones with cholangitis, s/p cholecystectomy today. Discussed with Dr. West, given extent of biliary stones and sick gall bladder she recommends additional midnight stay for IV abx and to slowly advance diet * monitor overnight * continue unasyn * if stable, can likely dc in am with 8-9 days of augmentin (minna complete 10 days post kalli) Subjective: comfortable, no new complaints Objective: Vital Signs Temp Pulse Resp BP Pulse Ox 36.9 C 49 L 17 130/81 H 96 06/29/17 13:44 06/29/17 13:44 06/29/17 13:44 06/29/17 13:44 06/29/17 13:44 Laboratory Results 06/29/17 05:12 06/29/17 05:12 06/28/17 06/29/17 06/30/17 05:59 05:59 05:59 Intake Total 2500 3555 910 Output Total 60 Balance 2440 3555 910 PT 14.1 SEC (12.0-15.0) 06/27/17 07:30 INR 1.07 (0.83-1.16) 06/27/17 07:30 - Physical Exam Constitutional: obese, uncomfortable Cardiovascular: regular rate and rhythym Respiratory: no respiratory distress, clear to auscultation Gastrointestinal: tenderness (mild) ICD10 Worksheet Patient Problems: Problems Problem Status Onset Cholelithiases Acute Cholecystitis Acute Choledocholithiasis Acute
[2017-06-29] MEDS: HYDROmorphONE/DILAUDID 1 MG/ML INJ IVP PRN (15:13)
[2017-06-29] MEDS: NS 1,000 ML IV SCH (19:10)
[2017-06-30] MEDS: KETOROLAC 15 MG/1 ML SDV IVP SCH ×2 (00:51→05:27)
[2017-06-30] MEDS: AMPICILLIN/SULBACTAM 3 GM in NS 100 ML IV SCH ×2 (00:51→05:28)
[2017-06-30] MEDS: NS 1,000 ML IV SCH (04:32)
[2017-06-30 07:54] VITALS: BP 124/79; PULSE 63; RESP 18; TEMP 98.5; O2SAT 96
--- NOTE | 2017-06-30 10:01 | GDS ---
[f rep st] DISCHARGE SUMMARY DIAGNOSIS: Acute cholangitis, cholecystitis secondary to gallstones. PROCEDURES DONE: 1. Endoscopic retrograde cholangiopancreatography, 06/27/2017, for bile duct stones, biliary sphinct erotomy, and balloon extraction. 2. Cholecystectomy. CONSULTATIONS: Dr. Sherie West, General Surgery, and Dr. Van Robles, GI. HOSPITAL COURSE: The patient is a 31-year-old, healthy man who had 2 weeks of abdominal pain, which escalated over the last 5 days. On admission, he had an abdominal MRI, which showed biliary duct sto laura. He underwent ERCP by Dr. Robles for stone extraction and was referred for surgery for cholecystec tiara. He was started on IV antibiotics and did well postprocedure. On 06/29/2017, underwent a lapar oscopic cholecystectomy without complications. However, given the extent of his cholangitis and chol ecystitis, he was kept here an additional night for IV antibiotics. He was feeling better the next d ay and will be discharged, to complete 10 days postsurgery of antibiotics. CONDITION ON DISCHARGE: Good. He has been afebrile. Heart rate 63, blood pressure 124/79. He is 9 6% on room air. He is alert and oriented. His abdomen is soft. He does have some right upper quadr ant incisional tenderness. DISCHARGE MEDICATIONS: He will be given a small supply of pain medicines for postop pain, as well as Augmentin 875 b.i.d. for an additional 9 days. Please see discharge medication form for full detail s. FOLLOWUP INSTRUCTIONS: He needs to follow up with Dr. West in 2 weeks. Total time spent with patient on day of discharge and coordination of care is 35 minutes. /[id number]/MODL
--- NOTE | 2017-06-30 10:25 | ASDISCHSUM ---
Discharge Information Plan Status:Home with No Needs Medically Cleared to Leave:06/29/2017 Discharge Date:06/29/2017 CM D/C Disposition:Home, Routine, Self-Care ADT D/C Disposition:Home, Routine, Self-Care Projected Discharge Date:06/29/2017 Transportation at D/C:Family Discharge Delay Reason: Follow-Up Date:06/29/2017 Discharge Slot: Final Diagnosis: Placement Information Patient Contact Information Contact Name:GIBSON Relationship:Mother Address:[id number] Work Phone: City:[facility] Phone: State/Zip Code:[place] [address] Email: Financial Information Financial Class:[facility] Primary Plan Desc:ANGELI[employer] LOCAL Primary Plan Number:[id number] Secondary Plan Desc: Secondary Plan Number: Assessment Information [facility] CM Progress Note CM Note CM Note Notes: Patient is s/p gabriella franke with Dr West today. He is recovering well. He lives independently with his sister and is employed. Mother is local and supportive. I anticipate that patient will discharge home with no needs; if any arise, Case Management will assist. Date Signed: 06/29/2017 12:46 PM Electronically Signed By:Paula Sigala RN Intervention Information
--- NOTE | 2017-06-30 10:26 | SOAPPROG ---
SOAP Progress Note Assessment/Plan: Assessment/Plan: 31yo M s/p lap kalli for choledocholithiasis Pain controlled Regular diet Ambulating independently Bowel function Dispo: home today. Follow up in 2 weeks. Avoid heavy lifting, pushing or pulling x2 weeks. Low-fat diet for 2 weeks. Call with worsening symptoms, questions or concerns S: feeling well, pain controlled, walking halls. Regular diet without NVD. +BM and flatus O: WDWN man NAD No increased WOB +BS, soft, nondistended, nontender. Incisions CDI Objective: Vital Signs Temp Pulse Resp BP Pulse Ox 36.9 C 63 18 124/79 H 96 06/30/17 07:52 06/30/17 07:52 06/30/17 07:52 06/30/17 07:52 06/30/17 07:52 Laboratory Results 06/30/17 04:45 06/30/17 04:45 06/29/17 06/30/17 07/01/17 05:59 05:59 05:59 Intake Total 3555 4208 Output Total 450 Balance 3555 3758 PT 14.1 SEC (12.0-15.0) 06/27/17 07:30 INR 1.07 (0.83-1.16) 06/27/17 07:30 ICD10 Worksheet Patient Problems: Problems Problem Status Onset Cholecystitis Acute Choledocholithiasis Acute Cholelithiases Acute
== END 2017-06-30 11:20 | disposition home or self-care (01) | DRG 418 ==
LOC: F1N 12:21
PROVIDERS: ADMIT Internal Medicine; ATTEND Internal Medicine
PROC: 0FC98ZZ Extirpation of Matter from Common Bile Duct, Via Natural or Artificial Opening Endoscopic (ICD-10-PCS; 2017-06-27)
PROC: 0FT44ZZ Resection of Gallbladder, Percutaneous Endoscopic Approach (ICD-10-PCS; principal; 2017-06-29 08:00)
DX: K80.33 Calculus of bile duct with acute cholangitis with obstruction (principal); K80.41 Calculus of bile duct with cholecystitis, unspecified, with obstruction; I10 Essential (primary) hypertension; E66.9 Obesity, unspecified; Z68.39 Body mass index [BMI] 39.0-39.9, adult
CPT/HCPCS: 96374; J0295; J0330; J1100; J1170; J1335; J1610; J1885; J2250; J2405; J2704; J3010; J3490; Q9961